=== PATIENT | female | born 1965 | race Caucasian/White ===

== ENCOUNTER 2016-12-06 12:55 | Emergency (ER) | payer SELFPAY ==
[~2016-12-06 12:55] MED LIST: CIPR500T4 PO; FLAG500T PO; HYDR-3533 PO; LISI-363 PO; NEXI20CA PO; ZOFR4TAB3 SL
[2016-12-06 12:58] VITALS: BP 169/103; PULSE 92; RESP 20; TEMP 98; O2SAT 97
[2016-12-06] MEDS ORDERED: NEXI20CA PO (14:05)
[2016-12-06] MEDS ORDERED: LISI-515 PO (14:05)
--- NOTE | 2016-12-06 14:56 | PD ---
HPI Chief Complaint: GI Complaint Time Seen by Provider: 14:50 Travel History International Travel<30 days: No Contact w/Intl Traveler<30days: No Traveled to known affect area: No History of Present Illness HPI Patient is a 51-year-old female presenting to the emergency room evaluation of abdominal pain. Patient states it started last night after dinner. She states it's in her lower quadrants and describes it as aching and burning. Patient also reports nausea and vomiting. She states whenever she eats something it comes right back up. She states her abdominal pain is a 6 out of 10. She denies any fever, chills, chest pain, shortness of breath, dysuria, back pain. She does report a history of diverticulitis, colon resection secondary to perforation, cholecystectomy, GERD, hypertension. PFSH Past Medical History Diminished Hearing: No Diverticulitis: Yes GERD: Yes Hypertension: Yes Menopausal: Yes Past Surgical History Abdominal Surgery: Yes (colon resection) Section: Yes Cholecystectomy: Yes Other Surgery: Yes (Breast Augmentation) Social History Alcohol Use: Yes (on occasion) Tobacco Use: Yes (2-3 cig a day) Substance Use: Yes (marijuana/daily) Allergies-Medications (Allergen,Severity, Reaction): Coded Allergies: Benadryl (Verified Allergy, Unknown, 12/06/16) Restless leg syndrome Reported Meds & Prescriptions Reported Meds & Active Scripts Active Zofran (Ondansetron HCl) 4 Mg Tab 4 Mg PO Q6HR PRN Flagyl (Metronidazole) 500 Mg Tab 500 Mg PO TID 10 Days Cipro (Ciprofloxacin HCl) 500 Mg Tab 500 Mg PO BID Reported Nexium (Esomeprazole DR) 20 Mg Capdr 20 Mg PO DAILY Lisinopril 20 Mg Tab 20 Mg PO DAILY Physical Exam Narrative GENERAL: Developed, well-nourished, alert female. Resting comfortably in no acute distress. SKIN: Warm and dry. HEAD: Atraumatic. Normocephalic. EYES: Pupils equal and round. No scleral icterus. No injection or drainage. ENT: No nasal bleeding or discharge. Mucous membranes pink and moist. NECK: Trachea midline. No JVD. CARDIOVASCULAR: Regular rate and rhythm. No murmur appreciated. RESPIRATORY: No accessory muscle use. Clear to auscultation. Breath sounds equal bilaterally. GASTROINTESTINAL: Abdomen soft, tender to palpation in bilateral lower abdominal quadrants, left worse than right, nondistended. Hepatic and splenic margins not palpable. Positive bowel sounds. Positive Guarding. MUSCULOSKELETAL: No obvious deformities. No clubbing. No cyanosis. No edema. NEUROLOGICAL: Awake and alert. No obvious cranial nerve deficits. Motor grossly within normal limits. Normal speech. PSYCHIATRIC: Appropriate mood and affect; insight and judgment normal. Data Data Last Documented VS Vital Signs Date Time Temp Pulse Resp B/P Pulse Ox O2 Delivery O2 Flow Rate FiO2 12/06/16 22:13 75 20 135/94 98 12/06/16 21:19 Room Air 12/06/16 12:58 98.0 Orders Complete Blood Count With Diff (12/06/16 14:48) Comprehensive Metabolic Panel (12/06/16 14:48) Lipase (12/06/16 14:48) Lactic Acid (12/06/16 14:48) Urinalysis - C+S If Indicated (12/06/16 14:48) Abdomen, Kub Only (12/06/16 14:48) Urine Culture (12/06/16 15:00) Ct Abd/Pel W Iv Contrast(Rout) (12/06/16 18:55) Morphine Inj (Morphine Inj) (12/06/16 19:00) Ondansetron Inj (Zofran Inj) (12/06/16 19:00) Ciprofloxacin 400 Mg Premix (Cipro 400 M (12/06/16 19:00) Pantoprazole Inj (Protonix Inj) (12/06/16 19:00) Sodium Chlor 0.9% 1000 Ml Inj (Ns 1000 M (12/06/16 18:55) Levofloxacin 500 Mg Premix Inj (Levaquin (12/06/16 19:00) Oral Contrast - Adult (12/06/16 19:05) Diatrizoate Liq ( Gastroview Liq) (12/06/16 19:30) Iohexol 350 Inj (Omnipaque 350 Inj) (12/06/16 20:30) Labs Laboratory Tests Test 12/06/16 15:00 White Blood Count 7.7 TH/MM3 Red Blood Count 4.16 MIL/MM3 Hemoglobin 14.8 GM/DL Hematocrit 42.6 % Mean Corpuscular Volume 102.3 FL Mean Corpuscular Hemoglobin 35.5 PG Mean Corpuscular Hemoglobin 34.7 % Concent Red Cell Distribution Width 13.6 % Platelet Count 206 TH/MM3 Mean Platelet Volume 6.9 FL Neutrophils (%) (Auto) 55.8 % Lymphocytes (%) (Auto) 32.8 % Monocytes (%) (Auto) 8.4 % Eosinophils (%) (Auto) 2.4 % Basophils (%) (Auto) 0.6 % Neutrophils # (Auto) 4.3 TH/MM3 Lymphocytes # (Auto) 2.5 TH/MM3 Monocytes # (Auto) 0.6 TH/MM3 Eosinophils # (Auto) 0.2 TH/MM3 Basophils # (Auto) 0.0 TH/MM3 CBC Comment DIFF FINAL Differential Comment Urine Color YELLOW Urine Turbidity HAZY Urine pH 5.5 Urine Specific [place] 1.016 Urine Protein TRACE mg/dL Urine Glucose (UA) NEG mg/dL Urine Ketones NEG mg/dL Urine Occult Blood TRACE Urine Nitrite POS Urine Bilirubin NEG Urine Urobilinogen LESS THAN 2.0 MG/DL Urine Leukocyte Esterase LARGE Urine RBC 5 /hpf Urine WBC 69 /hpf Urine Squamous Epithelial 1 /hpf Cells Urine Bacteria MANY /hpf Urine Mucus FEW /lpf Microscopic Urinalysis Comment CULTURE INDICATED Sodium Level 141 MEQ/L Potassium Level 4.0 MEQ/L Chloride Level 103 MEQ/L Carbon Dioxide Level 29.0 MEQ/L Anion Gap 9 MEQ/L Blood Urea Nitrogen 10 MG/DL Creatinine 0.81 MG/DL Estimat Glomerular Filtration 74 ML/MIN Rate Random Glucose 91 MG/DL Lactic Acid Level 0.4 mmol/L Calcium Level 8.9 MG/DL Total Bilirubin 0.6 MG/DL Aspartate Amino Transf 25 U/L (AST/SGOT) Alanine Aminotransferase 49 U/L (ALT/SGPT) Alkaline Phosphatase 94 U/L Total Protein 6.8 GM/DL Albumin 3.6 GM/DL Lipase 148 U/L [facility] Medical Decision Making Medical Screen Exam Complete: Yes Emergency Medical Condition: Yes Interpretation(s) Vital Signs Date Time Temp Pulse Resp B/P Pulse Ox O2 Delivery O2 Flow Rate FiO2 12/06/16 12:58 98.0 92 20 169/103 97 Room Air Differential Diagnosis UTI versus gastroenteritis versus obstruction versus diverticulitis versus other Narrative Course Patient is a 51-year-old female with a known history of diverticulitis status post colon resection in 2009, presenting with lower quadrant abdominal pain, left worse than right. Pain started last night it is associated with nausea and vomiting. Labs and imaging ordered and pending. Workup initiated in triage , care patient will be transferred to provide her with a medical bed is available. Scripts Ondansetron (Zofran)4 Mg Tab4 Mg PO Q6HR PRN (NAUSEA OR VOMITING) #15 TAB Ref 0 Prov:Judy Jeffers MD 12/06/16 Metronidazole (Flagyl)500 Mg [id number] Mg PO TID 10 Days Ref 0 Prov:Judy Jeffers MD 12/06/16 Ciprofloxacin (Cipro)500 Mg [id number] Mg PO BID #20 TAB Prov:Judy Jeffers MD 12/06/16 Grisel Sánchez Dec 06, 2016 14:56
[2016-12-06 15:11] LABS: AUTOMATED NEUTROPHIL # 4.3 TH/MM3 (1.8-7.7); BASOPHIL % 0.6 % (0.0-2.0); EOSINOPHIL # 0.2 TH/MM3 (0-0.4); EOSINOPHIL % 2.4 % (0.0-4.0); HEMATOCRIT 42.6 % (35.0-46.0); HEMO FLAGS DIFF FINAL; LYMPH % 32.8 % (9.0-44.0); LYMPHOCYTE # 2.5 TH/MM3 (1.0-4.8); MEAN CELL VOLUME 102.3 FL (80.0-100.0); MEAN CORPUSCULAR HEMOGLOBIN 35.5 PG (27.0-34.0); MEAN CORPUSCULAR HGB CONC 34.7 % (32.0-36.0); MONO % 8.4 % (0.0-8.0); NEUT % 55.8 % (16.0-70.0); PLATELET COUNT 206 TH/MM3 (150-450); RED BLOOD COUNT 4.16 MIL/MM3 (4.00-5.30); RED CELL DISTRIBUTION WIDTH 13.6 % (11.6-17.2); WHITE BLOOD COUNT 7.7 TH/MM3 (4.0-11.0)
[2016-12-06 15:15] LABS: BACTERIA, URINE MANY /hpf; BLOOD, URINE TRACE (NEG); GLUCOSE,URINE NEG (NEG); KETONE, URINE NEG (NEG); MUCUS URINE FEW /lpf (OCC); PH, URINE 5.5 (5.0-8.5); SQUAMOUS EPITHELIAL CELL URINE 1 /hpf (0-5); URINE COLOR YELLOW (YELLW/STRAW)
[2016-12-06 15:19] LABS: COMMENT (UR) CULTURE INDICATED; CULTURE IF INDICATED CULTURE INDICATED; NITRITE,URINE POS (NEG)
[2016-12-06 15:32] LABS: ANION GAP 9 MEQ/L (5-15); AST (GOT) 25 U/L (15-37); BLOOD UREA NITROGEN 10 MG/DL (7-18); CHLORIDE 103 MEQ/L (98-107); GLOMERULAR FILTRATION RATE 74 ML/MIN (>89); SODIUM (NA) 141 MEQ/L (136-145)
[2016-12-06 15:39] LABS: ALKALINE PHOSPHATASE 94 U/L (45-117); ALT (GPT) 49 U/L (10-53); TOTAL BILIRUBIN ADULT 0.6 MG/DL (0.2-1.0)
--- NOTE | 2016-12-06 16:16 | RADRPT ---
EXAM DATE/TIME: 12/06/2016 15:21 [facility] COMPARISON: CT ABDOMEN & PELVIS W CONTRAST, May 05, 2016, 10:27. INDICATIONS : Abdomen pain. MEDICAL HISTORY : Diverticulosis. SURGICAL HISTORY : colon resection. ENCOUNTER: Initial ACUITY: 1 day PAIN SCORE: 6/10 LOCATION: Bilateral abdomen FINDINGS: 2 frontal supine views of the abdomen demonstrates air within small and large bowel in a nonobstructi ve pattern. No organomegaly or abnormal calcifications are seen. No abnormal mass effect is appreciat ed. The visualized bones demonstrates no abnormality. Cholecystectomy clips are present. CONCLUSION: No acute abdominal abnormality is identified. Ray Slater MD on December 06, 2016 at 16:13 Board Certified Radiologist. This report was verified electronically.
[2016-12-06 18:11] VITALS: BP 217/118; PULSE 72; RESP 20; O2SAT 100
[2016-12-06] MEDS ORDERED: SODIUM CHLOR 0.9% 1000 ML INJ 1,000 ML IV SCH (18:55)
[2016-12-06] MEDS ORDERED: LEVOFLOXACIN 500 MG PREMIX INJ 100 ML IV ONE (19:00)
[2016-12-06] MEDS ORDERED: ONDANSETRON HCL 4 MG/2 ML VIAL IVP ONE (19:00)
[2016-12-06] MEDS ORDERED: CIPROFLOXACIN 400 MG PREMIX 200 ML IV ONE (19:00)
[2016-12-06] MEDS ORDERED: PANTOPRAZOLE SODIUM 40 MG VIAL IVP ONE (19:00)
[2016-12-06] MEDS ORDERED: MORPHINE SULFATE 4 MG/ML INJ IV PUSH ONE (19:00)
--- NOTE | 2016-12-06 19:14 | PD ---
Physical Exam Narrative General: The patient is a well-developed well-nourished female in no acute distress. Head and Neck exam: Head is normocephalic atraumatic. Eyes: EOMI, pupils are equal round and reactive to light. Nose: Midline septum with pink mucous membranes Mouth: Dentition unremarkable. Moist mucus membranes. Posterior oropharynx is not erythematous. No tonsillar hypertrophy. Uvula midline. Airway patent. Neck: No palpable lymphadenopathy. No nuchal rigidity. No thyromegaly. Cardiovascular: Regular rate and rhythm without murmurs, gallops, or rubs. Lungs: Clear to auscultation bilaterally. No wheezes, rhonchi, or rales. Abdomen: Diffuse tenderness on palpation worse in the right lower quadrant of the abdomen, however she does have pinpoint tenderness throughout to a lesser degree in the other 3 quadrants. No guarding, rebound, or rigidity. Negative [place] sign. Decreased bowel sounds are audible. Extremities: No clubbing, cyanosis, or edema. Neurologic Exam: Grossly nonfocal. Skin Exam: No rash noted. Intact skin that is warm and dry. Data Data Last Documented VS Vital Signs Date Time Temp Pulse Resp B/P Pulse Ox O2 Delivery O2 Flow Rate FiO2 12/06/16 22:13 75 20 135/94 98 12/06/16 21:19 Room Air 12/06/16 12:58 98.0 Orders Complete Blood Count With Diff (12/06/16 14:48) Comprehensive Metabolic Panel (12/06/16 14:48) Lipase (12/06/16 14:48) Lactic Acid (12/06/16 14:48) Urinalysis - C+S If Indicated (12/06/16 14:48) Abdomen, Kub Only (12/06/16 14:48) Urine Culture (12/06/16 15:00) Ct Abd/Pel W Iv Contrast(Rout) (12/06/16 18:55) Morphine Inj (Morphine Inj) (12/06/16 19:00) Ondansetron Inj (Zofran Inj) (12/06/16 19:00) Ciprofloxacin 400 Mg Premix (Cipro 400 M (12/06/16 19:00) Pantoprazole Inj (Protonix Inj) (12/06/16 19:00) Sodium Chlor 0.9% 1000 Ml Inj (Ns 1000 M (12/06/16 18:55) Levofloxacin 500 Mg Premix Inj (Levaquin (12/06/16 19:00) Oral Contrast - Adult (12/06/16 19:05) Diatrizoate Liq ( Gastroview Liq) (12/06/16 19:30) Iohexol 350 Inj (Omnipaque 350 Inj) (12/06/16 20:30) Labs Laboratory Tests Test 12/06/16 15:00 Sodium Level 141 MEQ/L Potassium Level 4.0 MEQ/L Chloride Level 103 MEQ/L Carbon Dioxide Level 29.0 MEQ/L Anion Gap 9 MEQ/L Blood Urea Nitrogen 10 MG/DL Creatinine 0.81 MG/DL Estimat Glomerular Filtration 74 ML/MIN Rate Random Glucose 91 MG/DL Lactic Acid Level 0.4 mmol/L Calcium Level 8.9 MG/DL Total Bilirubin 0.6 MG/DL Aspartate Amino Transf 25 U/L (AST/SGOT) Alanine Aminotransferase 49 U/L (ALT/SGPT) Alkaline Phosphatase 94 U/L Total Protein 6.8 GM/DL Albumin 3.6 GM/DL Lipase 148 U/L White Blood Count 7.7 TH/MM3 Red Blood Count 4.16 MIL/MM3 Hemoglobin 14.8 GM/DL Hematocrit 42.6 % Mean Corpuscular Volume 102.3 FL Mean Corpuscular Hemoglobin 35.5 PG Mean Corpuscular Hemoglobin 34.7 % Concent Red Cell Distribution Width 13.6 % Platelet Count 206 TH/MM3 Mean Platelet Volume 6.9 FL Neutrophils (%) (Auto) 55.8 % Lymphocytes (%) (Auto) 32.8 % Monocytes (%) (Auto) 8.4 % Eosinophils (%) (Auto) 2.4 % Basophils (%) (Auto) 0.6 % Neutrophils # (Auto) 4.3 TH/MM3 Lymphocytes # (Auto) 2.5 TH/MM3 Monocytes # (Auto) 0.6 TH/MM3 Eosinophils # (Auto) 0.2 TH/MM3 Basophils # (Auto) 0.0 TH/MM3 CBC Comment DIFF FINAL Differential Comment Urine Color YELLOW Urine Turbidity HAZY Urine pH 5.5 Urine Specific [place] 1.016 Urine Protein TRACE mg/dL Urine Glucose (UA) NEG mg/dL Urine Ketones NEG mg/dL Urine Occult Blood TRACE Urine Nitrite POS Urine Bilirubin NEG Urine Urobilinogen LESS THAN 2.0 MG/DL Urine Leukocyte Esterase LARGE Urine RBC 5 /hpf Urine WBC 69 /hpf Urine Squamous Epithelial 1 /hpf Cells Urine Bacteria MANY /hpf Urine Mucus FEW /lpf Microscopic Urinalysis Comment CULTURE INDICATED MDM Medical Record Reviewed: Yes Supervised Visit with ANGELA: Yes Interpretation(s) Last Impressions Abdomen/Pelvis CT 12/06/16 1855 Signed Impressions: Service Date/Time: Tuesday, December 06, 2016 20:24 - CONCLUSION: 1. Very mild uncomplicated diverticulitis of the descending colon, much less severe than seen on the prior CT. Previous sigmoid resection with patent, uninflamed appearing anastomosis. 2. Severely fatty infiltrated liver again noted. 3. Mild patchy atelectasis/consolidation seen of the visualized lung bases. Ray Yang MD Abdomen X-Ray 12/06/16 1448 Signed Impressions: Service Date/Time: Tuesday, December 06, 2016 15:21 - CONCLUSION: No acute abdominal abnormality is identified. Ray Slater MD Narrative Course I, Dr. Jeffers, have reviewed the advance practice practitioner's documentation and am in agreement, met with the patient face to face, made the diagnosis, and the medical decision making was done by me. The patient was initially seen by, Bharathi, please see his complete history and physical. *My assessment and Findings: The patient is a 51-year-old female who presents to [facility] emergency Department with a history of diverticulitis , status post partial colon resection and cholecystectomy at the same time in 2010. She has had recurrent problems with diverticulitis and sent. Her last exacerbation was in May 2016. The patient reports that yesterday she began to have abdominal pain. The patient reports that the pain was more generalized. She reports that she has not had a bowel movement for the last 24 hours which is also unusual for her. She denies having any dysuria, hematuria, urinary urgency, or frequency. She had 1 episode of nausea and vomiting last night. She also has had increased reflux symptoms since last night. She reports that 2 months ago her Protonix medication was discontinued and she was started on OTC Nexium. Laboratory studies and imaging studies have been ordered. The patient's laboratory studies were remarkable for a urinalysis that shows evidence of a urinary tract infection with positive nitrite. The patient was started on ciprofloxacin and Flagyl IV. CT scan of the abdomen and pelvis showed evidence of mild acute diverticulitis. The patient will be discharged home on antibiotic. The patient is resting comfortably and feels better, is alert and in no distress. The patients results and examination findings were discussed with the patient. The repeat examination is unremarkable and benign. The history, exam, diagnostic testing, and current condition do not suggest any significant pathology to warrant further testing, continued ED treatment, admission, or surgical evaluation at this point. The vital signs have been stable. The patient does not have uncontrollable pain, intractable vomiting, or other significant symptoms. The patient's condition is stable and appropriate for discharge. The patient will pursue further outpatient evaluation with a primary care physician or other designated or consulting physician as indicated in the discharge instructions. The patient expressed understanding and was agreeable with this plan. Diagnosis Primary Impression: Abdominal pain Qualified Code: R10.84 - Generalized abdominal pain Additional Impression: Diverticulitis large intestine Qualified Code: K57.32 - Diverticulitis of large intestine without perforation or abscess without bleeding Scripts Ondansetron (Zofran)4 Mg Tab4 Mg PO Q6HR PRN (NAUSEA OR VOMITING) #15 TAB Ref 0 Prov:Judy Jeffers MD 12/06/16 Metronidazole (Flagyl)500 Mg [id number] Mg PO TID 10 Days Ref 0 Prov:Judy Jeffers MD 12/06/16 Ciprofloxacin (Cipro)500 Mg [id number] Mg PO BID #20 TAB Prov:Judy Jeffers MD 12/06/16 Judy Jeffers MD Dec 06, 2016 19:14
[2016-12-06] MEDS ORDERED: DIATRIZOATE MEGLUM/DIATRIZOATE SOD 9 ML CUP ONE (19:30)
[2016-12-06] MEDS ORDERED: IOHEXOL 350 MG/ML 10 ML VIAL (for RAD DIAG) IV ONE (20:30)
--- NOTE | 2016-12-06 20:48 | RADRPT ---
EXAM DATE/TIME: 12/06/2016 20:24 [facility] COMPARISON: CT ABDOMEN & PELVIS W CONTRAST, May 05, 2016, 10:27. INDICATIONS : Abdomen pain. IV CONTRAST: 96 cc Omnipaque 350 (iohexol) IV ORAL CONTRAST: Prescribed oral contrast ingested. RADIATION DOSE: 12.12 CTDIvol (mGy) MEDICAL HISTORY : Cardiovascular disease. Hypertension. SURGICAL HISTORY : None. ENCOUNTER: Initial ACUITY: 1 day PAIN SCALE: 5/10 LOCATION: Bilateral abdomen. TECHNIQUE: Volumetric scanning of the abdomen and pelvis was performed. Using automated exposure control and ad justment of the mA and/or kV according to patient size, radiation dose was kept as low as reasonably achievable to obtain optimal diagnostic quality images. FINDINGS: Patient is again noted to have moderate to severe left-sided colon diverticulosis. There are mild inf lammatory changes of the descending colon without abscess, obstruction or free air. Patient has had p revious resection of the sigmoid colon. The anastomosis appears patent. The appendix is well-visualiz ed, does not appear inflamed. A couple tiny appendicoliths are noted.. Trace free fluid in the pelvic cul-de-sac noted. Marked fatty infiltration of the liver again noted. Patient has had previous cholecystectomy. Spleen, pancreas, adrenal glands and kidneys are all within normal limits. CONCLUSION: 1. Very mild uncomplicated diverticulitis of the descending colon, much less severe than seen on the prior CT. Previous sigmoid resection with patent, uninflamed appearing anastomosis. 2. Severely fatty infiltrated liver again noted. 3. Mild patchy atelectasis/consolidation seen of the visualized lung bases. Ray Yang MD on December 06, 2016 at 20:42 Board Certified Radiologist. This report was verified electronically.
--- NOTE | 2016-12-06 20:59 | PD ---
Physical Exam Date Seen by Provider: Dec 06, 2016 Time Seen by Provider: 18:45 Narrative 51-year-old female presents to emergency department and seen in triage by Marlene CROFT with history of recurrent diverticulitis and what appears to be UTI on labs. Patient did have an abdominal x-ray performed which showed no acute process, but due to the patient's history I feel a CT scan is warranted. Data Data Last Documented VS Vital Signs Date Time Temp Pulse Resp B/P Pulse Ox O2 Delivery O2 Flow Rate FiO2 12/06/16 18:11 72 20 217/118 100 Room Air 12/06/16 12:58 98.0 Orders Complete Blood Count With Diff (12/06/16 14:48) Comprehensive Metabolic Panel (12/06/16 14:48) Lipase (12/06/16 14:48) Lactic Acid (12/06/16 14:48) Urinalysis - C+S If Indicated (12/06/16 14:48) Abdomen, Kub Only (12/06/16 14:48) Urine Culture (12/06/16 15:00) Lactic Acid (12/06/16 18:55) Ct Abd/Pel W Iv Contrast(Rout) (12/06/16 18:55) Morphine Inj (Morphine Inj) (12/06/16 19:00) Ondansetron Inj (Zofran Inj) (12/06/16 19:00) Ciprofloxacin 400 Mg Premix (Cipro 400 M (12/06/16 19:00) Pantoprazole Inj (Protonix Inj) (12/06/16 19:00) Sodium Chlor 0.9% 1000 Ml Inj (Ns 1000 M (12/06/16 18:55) Levofloxacin 500 Mg Premix Inj (Levaquin (12/06/16 19:00) Oral Contrast - Adult (12/06/16 19:05) Diatrizoate Liq ( Gastroloan Liq) (12/06/16 19:30) Iohexol 350 Inj (Omnipaque 350 Inj) (12/06/16 20:30) Labs Laboratory Tests Test 12/06/16 15:00 White Blood Count 7.7 TH/MM3 Red Blood Count 4.16 MIL/MM3 Hemoglobin 14.8 GM/DL Hematocrit 42.6 % Mean Corpuscular Volume 102.3 FL Mean Corpuscular Hemoglobin 35.5 PG Mean Corpuscular Hemoglobin 34.7 % Concent Red Cell Distribution Width 13.6 % Platelet Count 206 TH/MM3 Mean Platelet Volume 6.9 FL Neutrophils (%) (Auto) 55.8 % Lymphocytes (%) (Auto) 32.8 % Monocytes (%) (Auto) 8.4 % Eosinophils (%) (Auto) 2.4 % Basophils (%) (Auto) 0.6 % Neutrophils # (Auto) 4.3 TH/MM3 Lymphocytes # (Auto) 2.5 TH/MM3 Monocytes # (Auto) 0.6 TH/MM3 Eosinophils # (Auto) 0.2 TH/MM3 Basophils # (Auto) 0.0 TH/MM3 CBC Comment DIFF FINAL Differential Comment Urine Color YELLOW Urine Turbidity HAZY Urine pH 5.5 Urine Specific [place] 1.016 Urine Protein TRACE mg/dL Urine Glucose (UA) NEG mg/dL Urine Ketones NEG mg/dL Urine Occult Blood TRACE Urine Nitrite POS Urine Bilirubin NEG Urine Urobilinogen LESS THAN 2.0 MG/DL Urine Leukocyte Esterase LARGE Urine RBC 5 /hpf Urine WBC 69 /hpf Urine Squamous Epithelial 1 /hpf Cells Urine Bacteria MANY /hpf Urine Mucus FEW /lpf Microscopic Urinalysis Comment CULTURE INDICATED Sodium Level 141 MEQ/L Potassium Level 4.0 MEQ/L Chloride Level 103 MEQ/L Carbon Dioxide Level 29.0 MEQ/L Anion Gap 9 MEQ/L Blood Urea Nitrogen 10 MG/DL Creatinine 0.81 MG/DL Estimat Glomerular Filtration 74 ML/MIN Rate Random Glucose 91 MG/DL Lactic Acid Level 0.4 mmol/L Calcium Level 8.9 MG/DL Total Bilirubin 0.6 MG/DL Aspartate Amino Transf 25 U/L (AST/SGOT) Alanine Aminotransferase 49 U/L (ALT/SGPT) Alkaline Phosphatase 94 U/L Total Protein 6.8 GM/DL Albumin 3.6 GM/DL Lipase 148 U/L [facility] Medical Record Reviewed: Yes Supervised Visit with ANGELA: Yes Differential Diagnosis Abdominal pain. Urinary tract infection. Diverticulitis. Appendicitis. Narrative Course Patient is medically stable at time of exam. Labs are reviewed. Patient is given 400 mg Cipro IV as well as 4 mg Zofran IV, 500 mg Flagyl IV, and [address] of the abdomen with contrast is ordered. CT shows uncomplicated diverticulitis of the ascending colon per radiologist. All other acute findings were noted. Patient is felt to be stable to be discharged home. Patient will be given Cipro 500 mg twice a day 10 days. Patient is also given Flagyl 500 mg 3 times a day 10 days. Patient is given a prescription for Zofran 4 mg every 6 hours when necessary, # 15. Patient should continue her other meds as previously prescribed. Patient is to use low residue diet and follow-up with GI specialist as discussed. Patient can return to emergency department if worsening symptoms develop. Diagnosis Primary Impression: Abdominal pain Qualified Code: R10.84 - Generalized abdominal pain Referrals: Elva Caldwell MD call for appointment Patient Instructions: Diverticulitis (ED), Diverticulitis Diet (ED), General Instructions Additional Instruction: CT shows uncomplicated diverticulitis of the ascending colon per radiologist. All other acute findings were noted. Patient is felt to be stable to be discharged home. Patient will be given Cipro 500 mg twice a day 10 days. Patient is also given Flagyl 500 mg 3 times a day 10 days. Patient is given a prescription for Zofran 4 mg every 6 hours when necessary, # 15. Patient should continue her other meds as previously prescribed. Patient is to use low residue diet and follow-up with GI specialist as discussed. Patient can return to emergency department if worsening symptoms develop. Med/Other Pt SpecificInfo: Prescription(s) given, No Change to Meds Disposition: 01 DISCHARGE HOME Condition: Stable Bharathi Elkins Dec 06, 2016 20:59
[2016-12-06] MEDS ORDERED: CIPR-9 PO (21:00)
[2016-12-06] MEDS ORDERED: ZOFR4TAB PO (21:00)
[2016-12-06] MEDS ORDERED: METR-1 PO (21:00)
[2016-12-06 21:19] VITALS: PULSE 70; RESP 22; O2SAT 98
[2016-12-06 22:13] VITALS: BP 135/94
== END 2016-12-06 22:19 | disposition home or self-care (01) ==
LOC: NEPE 12:55
DX: K57.32 Diverticulitis of large intestine without perforation or abscess without bleeding (principal); R11.2 Nausea with vomiting, unspecified; Z72.0 Tobacco use; F12.10 Cannabis abuse, uncomplicated
CPT/HCPCS: 74000; 74177; 80053; 81001; 83605; 83690; 85025; 87077; 87086; 87186; 96365; 96367; 96375; 99284; C9113; J0744; J1956; J2270; J2405; J7030; Q9963; Q9967

== ENCOUNTER 2017-07-15 07:05 | Emergency (ER) | payer SELFPAY ==
[~2017-07-15] VITALS: Ht 177.8 cm; Wt 95.0 kg
[~2017-07-15 07:05] MED LIST changes: +CIPR-9 PO; -CIPR500T4 PO; -FLAG500T PO; -HYDR-3533 PO; -LISI-363 PO; +LISI-515 PO; +METR-1 PO; +ZOFR4TAB PO; -ZOFR4TAB3 SL
[2017-07-15 07:16] VITALS: BP 170/81; PULSE 85; RESP 16; TEMP 98.4; O2SAT 99
--- NOTE | 2017-07-15 07:22 | PD ---
HPI Chief Complaint: Musculoskeletal Complaint Time Seen by Provider: 07:22 Travel History International Travel<30 days: No Contact w/Intl Traveler<30days: No Traveled to known affect area: No History of Present Illness HPI 52-year-old female presents to the emergency Department with complaint of right foot pain just below her second toe that started this morning at approximately 3 AM when she stepped down out of her bed. Reports swelling to the bottom of her foot. Denies paresthesias, loss of sensation. Denies fevers, vomiting. Says she cannot put any type of pressure on it. Denies history of gout. Has not taken any medication or tried any treatments to alleviate her symptoms. Symptoms are mild in severity. Pain is 10/10. Describes it as a burning sensation. Allergies to Benadryl. Has no other medical complaints. No other modifying factors or associated signs and symptoms. PFSH Past Medical History Cardiovascular Problems: Yes (HTN) Diminished Hearing: No Diverticulitis: Yes GERD: Yes Hypertension: Yes ?: Not Menopausal: Yes Past Surgical History Abdominal Surgery: Yes (colon resection) Section: Yes Cholecystectomy: Yes Other Surgery: Yes (Breast Augmentation) Social History Alcohol Use: Yes (on occasion) Tobacco Use: Yes (2-3 cig a day) Substance Use: Yes (marijuana/daily) Allergies-Medications (Allergen,Severity, Reaction): Coded Allergies: diphenhydramine (Unverified Allergy, Unknown, 07/15/17) Restless leg syndrome Reported Meds & Prescriptions Reported Meds & Active Scripts Active Ibuprofen 800 Mg Tab 800 Mg PO Q8H PRN Reported Nexium (Esomeprazole DR) 20 Mg Capdr 20 Mg PO DAILY Lisinopril 20 Mg Tab 20 Mg PO DAILY Review of Systems Except as stated in HPI: all other systems reviewed are Neg Physical Exam Narrative GENERAL: Well-nourished, well-developed female patient, in no acute distress SKIN: Warm and dry. HEAD: Atraumatic. Normocephalic. EYES: Pupils equal and round. No scleral icterus. No injection or drainage. ENT: Mucosa pink and moist. Airway patent. NECK: Trachea midline. CARDIOVASCULAR: Regular rate. RESPIRATORY: No accessory muscle use. GASTROINTESTINAL: Round. MUSCULOSKELETAL: Right foot with tenderness on palpation to the second metatarsal region just below the second toe; areas without erythema, edema, ecchymosis; edema noted to the ball of the foot and is without erythema, ecchymosis; answering intact; toes are pink and warm; less than 3 second cap refill. No obvious deformities. No clubbing. No cyanosis. No edema. NEUROLOGICAL: Awake and alert. Oriented 3. No obvious cranial nerve deficits. Motor grossly within normal limits. Normal speech. PSYCHIATRIC: Appropriate mood and affect; insight and judgment normal. Data Data Last Documented VS Vital Signs Date Time Temp Pulse Resp B/P (MAP) Pulse Ox O2 Delivery O2 Flow Rate FiO2 07/15/17 07:16 98.4 85 16 170/81 (110) 99 Orders Orders Foot, Complete ([id number]) (07/15/17 07:22) Ice/Cold Pack (07/15/17 07:22) Crutches (07/15/17 07:22) Ibuprofen (Motrin) (07/15/17 07:30) Ed Discharge Order (07/15/17 08:12) Acetamin-Hydrocod 325-5 Mg ([place] 5-325 (07/15/17 08:15) MDM Medical Decision Making Medical Screen Exam Complete: Yes Emergency Medical Condition: Yes Medical Record Reviewed: Yes Differential Diagnosis Foot sprain, foot pain, stress fracture, arthritis, gout Narrative Course 52-year-old female with right foot pain. Ibuprofen administered in the ER. Ice pack ordered. Right foot x-ray ordered. 0820: Right foot x-ray concludes: Unremarkable examination of the right foot. Matthew bandage, crutches provided for support. Lortab administered in the ER prior to discharge. Ibuprofen prescribed for home. Instructed patient to follow up with podiatry. Patient provided information [facility]. Instructed patient to follow up with primary care provider. Patient verbalizes understanding and agreement with treatment plan. Patient is medically cleared and stable for discharge. Discussed reasons to return to the emergency department. Patient agrees with treatment plan. The patients vital signs are stable and the patient is stable for outpatient follow-up and treatment. Patient discharged home, stable and in no acute distress. Diagnosis Primary Impression: Right foot pain Referrals: [facility] Primary Care Physician Patient Instructions: Foot Sprain (ED), General Instructions Departure Forms: Tests/Procedures, Work Release Enter return to work date: Jul 18, 2017 Additional Instructions: Tylenol or ibuprofen as directed and as needed for pain and inflammation Rest, ice, compress, and elevate extremity to decrease pain and inflammation Matthew bandage for compression and support Crutches for support Avoid aggravating activity; increase activity as tolerated Follow-up with primary care provider Return to the emergency department immediately with worsening of symptoms Med/Other Pt SpecificInfo: Prescription(s) given Scripts Ibuprofen (Ibuprofen) 800 Mg Tab 800 MG PO Q8H Y for PAIN SCALE 1 TO 10, #30 TAB 0 Refills Prov: Pascale Lemus 07/15/17 Disposition: 01 DISCHARGE HOME Condition: Stable Pascale Lemus Jul 15, 2017 07:22
[2017-07-15] MEDS ORDERED: IBUPROFEN 800 MG TAB PO ONE (07:30)
--- NOTE | 2017-07-15 08:06 | RADRPT ---
EXAM DATE/TIME: 07/15/2017 07:59 [place] COMPARISON: No previous studies available for comparison. INDICATIONS : Right foot pain, fall out of bed. MEDICAL HISTORY : None. SURGICAL HISTORY : None. ENCOUNTER: Initial ACUITY: 1 day PAIN SCORE: 10/10 LOCATION: Right foot, dorsal surface across metatarsals FINDINGS: Three view examination of the right foot demonstrates no soft tissue swelling, dislocation, or fractu re. The tarsal bones appear intact. The interphalangeal and metatarsophalangeal joints are intact. The calcaneus is intact. Bony mineralization is normal. CONCLUSION: Unremarkable examination of the right foot. Kedar Child Jr., MD on July 15, 2017 at 8:03 Board Certified Radiologist. This report was verified electronically.
[2017-07-15] MEDS ORDERED: IBUP800T23 PO (08:11)
[2017-07-15] MEDS ORDERED: ACETAMINOPHEN/HYDROcodone 325 MG/5 MG TAB PO ONE (08:15)
== END 2017-07-15 08:35 | disposition home or self-care (01) ==
LOC: NEPK 07:05
DX: M25.571 Pain in right ankle and joints of right foot (principal); I10 Essential (primary) hypertension; K21.9 Gastro-esophageal reflux disease without esophagitis; F17.210 Nicotine dependence, cigarettes, uncomplicated
CPT/HCPCS: 73630; 99283; E0113